=== PATIENT | female | born 1930 | race Caucasian/White ===

== ENCOUNTER 2017-10-11 18:32 | Inpatient (IN) | payer MEDICARE, MEDICAID ==
[~2017-10-11] VITALS: Ht 152.4 cm; Wt 40.6 kg
[2017-10-11] MEDS ORDERED: METOPROLOL SUCC25 MG ORAL (19:57)
[2017-10-11] MEDS ORDERED: DIGOXIN0.125 MG/2 ORAL (19:57)
[2017-10-11] MEDS ORDERED: BUPROPION XL150 MG ORAL (19:57)
[2017-10-11] MEDS ORDERED: SIMVASTATIN10 MG ORAL (19:57)
[2017-10-11] MEDS ORDERED: CENTRUM COMPLE1 EAC1 PO (19:57)
[2017-10-11] MEDS ORDERED: LORAZEPAM1 MG ORAL (19:57)
[2017-10-11] MEDS ORDERED: ZYPREXA5 MG ORAL (19:57)
[2017-10-11] MEDS ORDERED: ASPIRIN81 MG ORAL (19:57)
[2017-10-11] MEDS ORDERED: CRANBERRY250 MG PO (19:57)
[2017-10-11 19:59] LABS: ANION GAP 6 mmol/L (5-15); BLOOD UREA NITROGEN 38 mg/dL (7-18); CALCIUM 9.9 MG/DL (8.5-10.1); CARBON DIOXIDE 26 MMOL/L (21-32); CHLORIDE 102 MMOL/L (98-107); CREATININE 1.3 MG/DL (0.55-1.30); POTASSIUM 4.6 MMOL/L (3.5-5.1); SODIUM 134 MMOL/L (136-145)
[2017-10-11 20:00] VITALS: BP 142/75
[2017-10-11 20:09] LABS: HEMATOCRIT 36.7 % (37.0-47.0); HEMOGLOBIN 12.2 G/DL (12.0-16.0); MEAN CORPUSCULAR VOLUME 85 FL (80-99); PLATELET COUNT 280 K/UL (150-450); RED BLOOD COUNT 4.29 M/UL (4.20-5.40); RED CELL DISTRIBUTION WIDTH 11.6 % (11.6-14.8); WHITE BLOOD COUNT 10.6 K/UL (4.8-10.8)
[2017-10-11 20:12] LABS: ALANINE AMINOTRANSFERASE 23 U/L (12-78); ALBUMIN/GLOBULIN RATIO 1.3 (1.0-2.7); ALKALINE PHOSPHATASE 132 U/L (46-116); ASPARTATE AMINO TRANSFERASE 19 U/L (15-37); BILIRUBIN,TOTAL 0.4 MG/DL (0.2-1.0); CKMB 0.8 NG/ML (0.0-3.6); CREATINE KINASE 35 U/L (26-308); PHOSPHORUS 3.3 MG/DL (2.5-4.9)
[2017-10-11] MEDS: Sodium Chloride 500ML 500 ML IV ONE ×2 (20:18→20:19)
[2017-10-11 20:20] LABS: APPEARANCE,URINE CLEAR; BILIRUBIN, URINE NEGATIVE (NEGATIVE); GLUCOSE, URINE (UA) NEGATIVE (NEGATIVE); KETONES,URINE 1+ (NEGATIVE); LEUKOCYTE ESTERASE ,URINE NEGATIVE (NEGATIVE); NITRITE,URINE NEGATIVE (NEGATIVE); PH,URINE 6 (4.5-8.0); PROTEIN,URINE 2+ (NEGATIVE); UROBILINOGEN,URINE NORMAL (NORMAL)
[2017-10-11 20:21] LABS: COLOR,URINE YELLOW
[2017-10-11 21:34] VITALS: BP 142/77
[2017-10-11 22:30] VITALS: BP 150/89
[2017-10-11] MEDS ORDERED: ATIVAN0.5 MG ORAL (22:39)
[2017-10-11] MEDS ORDERED: traMADol 50mg tab ORAL PRN (22:45)
--- NOTE | 2017-10-11 23:00 | Emergency Room Report ---
History of Present Illness General Chief Complaint: Altered Level of Consciousness Source: Family Member Present Illness HPI The patient is a 87-year-old female brought in by family member after increased agitation and the confusion. Patient had prior history of dementia. Patient was noted to have increased generalized weakness she presented taking digoxin as well as multiple psychiatric medications. Patient was noted to have decreased oral intake. The patient not been febrile. Allergies: Coded Allergies: No Known Allergies (Unverified , 10/11/17) Patient History Past Medical History: see triage record Last Menstrual Period: NA Reviewed Nursing Documentation: PMH: Agreed; PSxH: Agreed Nursing Documentation-PMH Past Medical History: No History, Except For Hx Cardiac Problems: No Hx Hypertension: No - broken neck 6 months ago. Hx Pacemaker: No Hx Asthma: No Hx COPD: No Hx Diabetes: No Hx Cancer: No Hx Gastrointestinal Problems: No Hx Dialysis: No Hx Neurological Problems: No Hx Cerebrovascular Accident: No Hx Seizures: No Review of Systems All Other Systems: limited - by mental status Physical Exam Vital Signs Date Time Temp Pulse Resp B/P (MAP) Pulse Ox O2 Delivery O2 Flow Rate FiO2 10/11/17 18:52 97.6 86 20 151/90 95 Room Air 97.5 General Appearance: thin, Chronically Ill Head: normocephalic Neck: limited range of motion, other - neck in cervical collar Respiratory: lungs clear Cardiovascular #1: no edema Gastrointestinal: normal inspection, non tender, soft Musculoskeletal: decreased range of motion Neurologic: alert, responsive Skin: no rash Medical Decision Making Diagnostic Impression: Primary Impression: Generalized weakness Additional Impressions: Possible urinary tract infection Dehydration ER Course Patient presented for generalized weakness and confusion. Differential diagnosis included was not limited to anemia, urinary tract infection, electrolyte abnormality, hypothyroidism, myocardial infarction, myasthenia gravis, dehydration, among others. Because of complexity of patient's case laboratory testing and imaging studies were ordered. CT of head read by radiology showed no evidence of acute hemorrhage or CVA. The laboratory testing was notable for elevated BUN as well as B type nitrate peptide. I EKG interpreted by me showed normal sinus rhythm with nonspecific T wave changes R84. Patient was given IV fluids. Dr. Vee was contacted for inpatient management due to primary care physician Labs Test 10/11/17 19:30 10/11/17 19:45 White Blood Count 10.6 K/UL (4.8-10.8) Red Blood Count 4.29 M/UL (4.20-5.40) Hemoglobin 12.2 G/DL (12.0-16.0) Hematocrit 36.7 % (37.0-47.0) Mean Corpuscular Volume 85 FL (80-99) Mean Corpuscular Hemoglobin 28.5 PG (27.0-31.0) Mean Corpuscular Hemoglobin Concent 33.4 G/DL (32.0-36.0) Red Cell Distribution Width 11.6 % (11.6-14.8) Platelet Count 280 K/UL (150-450) Mean Platelet Volume 6.8 FL (6.5-10.1) Neutrophils (%) (Auto) % (45.0-75.0) Lymphocytes (%) (Auto) % (20.0-45.0) Monocytes (%) (Auto) % (1.0-10.0) Eosinophils (%) (Auto) % (0.0-3.0) Basophils (%) (Auto) % (0.0-2.0) Differential Total Cells Counted 100 Neutrophils % (Manual) 85 % (45-75) Lymphocytes % (Manual) 11 % (20-45) Monocytes % (Manual) 4 % (1-10) Eosinophils % (Manual) 0 % (0-3) Basophils % (Manual) 0 % (0-2) Band Neutrophils 0 % (0-8) Platelet Estimate Adequate Platelet Morphology Normal Red Blood Cell Morphology Normal Sodium Level 134 MMOL/L (136-145) Potassium Level 4.6 MMOL/L (3.5-5.1) Chloride Level 102 MMOL/L (98-107) Carbon Dioxide Level 26 MMOL/L (21-32) Anion Gap 6 mmol/L (5-15) Blood Urea Nitrogen 38 mg/dL (7-18) Creatinine 1.3 MG/DL (0.55-1.30) Estimat Glomerular Filtration Rate mL/min (>60) Glucose Level 138 MG/DL (74-106) Lactic Acid Level 1.40 mmol/L (0.4-2.0) Calcium Level 9.9 MG/DL (8.5-10.1) Phosphorus Level 3.3 MG/DL (2.5-4.9) Magnesium Level 2.3 MG/DL (1.8-2.4) Total Bilirubin 0.4 MG/DL (0.2-1.0) Aspartate Amino Transf (AST/SGOT) 19 U/L (15-37) Alanine Aminotransferase (ALT/SGPT) 23 U/L (12-78) Alkaline Phosphatase 132 U/L (46-116) Total Creatine Kinase 35 U/L (26-308) Creatine Kinase MB 0.8 NG/ML (0.0-3.6) Creatine Kinase MB Relative Index 2.2 Troponin I 0.000 ng/mL (0.000-0.056) Pro-B-Type Natriuretic Peptide 513 pg/mL (0-125) Total Protein 7.1 G/DL (6.4-8.2) Albumin 4.0 G/DL (3.4-5.0) Globulin 3.1 g/dL Albumin/Globulin Ratio 1.3 (1.0-2.7) Lipase 88 U/L (73-393) Urine Color Yellow Urine Appearance Clear Urine pH 6 (4.5-8.0) Urine Specific [place] 1.020 (1.005-1.035) Urine Protein 2+ (NEGATIVE) Urine Glucose (UA) Negative (NEGATIVE) Urine Ketones 1+ (NEGATIVE) Urine Occult Blood 1+ (NEGATIVE) Urine Nitrite Negative (NEGATIVE) Urine Bilirubin Negative (NEGATIVE) Urine Urobilinogen Normal MG/DL (NORMAL) Urine Leukocyte Esterase Negative (NEGATIVE) Urine RBC 0-2 /HPF (0 - 2) Urine WBC 0-2 /HPF (0 - 2) Urine Squamous Epithelial Cells Few /LPF (NONE/OCC) Urine Bacteria Few /HPF (NONE) Last Vital Signs Date Time Temp Pulse Resp B/P (MAP) Pulse Ox O2 Delivery O2 Flow Rate FiO2 10/11/17 22:15 98.3 85 15 142/77 98 Room Air 98.3 Status: improved Disposition: HOME, SELF-CARE Condition: Stable Referrals: Juan Luis Mckee MD (PCP) Hugo Pemberton MD Oct 11, 2017 23:00
[2017-10-11] MEDS: BuPROPion XL 150mg tab ORAL SCH (23:28)
[2017-10-12 04:00] VITALS: BP 157/90
[2017-10-12] MEDS: LORazepam 0.5mg tab ORAL PRN ×2 (04:25→23:15)
[2017-10-12 06:24] LABS: BASOPHILS % (AUTO) 0.4 % (0.0-2.0); EOSINOPHILS % (AUTO) 0.3 % (0.0-3.0); HEMATOCRIT 34.2 % (37.0-47.0); HEMOGLOBIN 11.8 G/DL (12.0-16.0); MEAN CORPUSCULAR VOLUME 86 FL (80-99); MONOCYTES % (AUTO) 5.2 % (1.0-10.0); NEUTROPHILS % (AUTO) 82.2 % (45.0-75.0); PLATELET COUNT 249 K/UL (150-450); RED BLOOD COUNT 3.97 M/UL (4.20-5.40); RED CELL DISTRIBUTION WIDTH 11.6 % (11.6-14.8); WHITE BLOOD COUNT 8.5 K/UL (4.8-10.8)
[2017-10-12 07:04] LABS: ANION GAP 11 mmol/L (5-15); BLOOD UREA NITROGEN 29 mg/dL (7-18); CALCIUM 9.3 MG/DL (8.5-10.1); CARBON DIOXIDE 24 MMOL/L (21-32); CHLORIDE 102 MMOL/L (98-107); CREATININE 1.1 MG/DL (0.55-1.30); POTASSIUM 4.1 MMOL/L (3.5-5.1); SODIUM 137 MMOL/L (136-145)
[2017-10-12 08:00] VITALS: BP 143/69
--- NOTE | 2017-10-12 08:44 | General Progress Note ---
Assessment/Plan Status: stable Assessment/Plan 1. Generalized weakness - PT and OT eval and txt. 2. Dehydration - improved with NS. 3. H/O C1 and C2 fx - 4. H/O multiple falls - PT and OT eval and txt. 5. Dementia - cont zyprexa. 6. Depression - on wellbutrin and zyprexa. 7. Hyperlipidemia - cont Atorvastatin 10 mg one po qh 8. HTN - cont toprol XL 50 mg daily. Subjective Date patient seen: Oct 12, 2017 Time patient seen: 08:30 Constitutional: Reports: weakness HEENT: Reports: no symptoms Cardiovascular: Reports: no symptoms Respiratory: Reports: no symptoms Gastrointestinal/Abdominal: Reports: no symptoms Genitourinary: Reports: no symptoms Neurologic/Psychiatric: Reports: no symptoms Endocrine: Reports: no symptoms Hematologic/Lymphatic: Reports: no symptoms Allergies: Coded Allergies: No Known Allergies (Unverified , 10/11/17) Subjective This morning she is lying in bed. she is slightly confused. no sob or chest pain. no fever or chills. Objective Last 24 Hour Vital Signs Date Time Temp Pulse Resp B/P (MAP) Pulse Ox O2 Delivery O2 Flow Rate FiO2 10/12/17 04:00 98.2 91 20 157/90 (112) 97 98.2 10/12/17 04:00 80 10/12/17 00:00 Room Air 10/12/17 00:00 87 10/11/17 22:36 84 10/11/17 22:30 97.5 87 18 150/89 (109) 97 97.5 10/11/17 22:15 98.3 85 15 142/77 98 Room Air 98.3 10/11/17 21:34 98.3 85 15 142/77 98 Room Air 98.3 10/11/17 20:00 98.2 85 14 142/75 95 Room Air 98.2 10/11/17 18:52 97.6 86 20 151/90 95 Room Air 97.5 Intake and Output 10/11/17 10/12/17 19:00 07:00 Intake Total 950 ml Balance 950 ml Intake Oral 50 ml IV Total 900 ml # Voids 3 Laboratory Tests 10/11/17 19:30: White Blood Count 10.6, Red Blood Count 4.29, Hemoglobin 12.2, Hematocrit 36.7L , Mean Corpuscular Volume 85, Mean Corpuscular Hemoglobin 28.5, Mean Corpuscular Hemoglobin Concent 33.4, Red Cell Distribution Width 11.6, Platelet Count 280, Mean Platelet Volume 6.8, Neutrophils (%) (Auto) , Lymphocytes (%) ( Auto) , Monocytes (%) (Auto) , Eosinophils (%) (Auto) , Basophils (%) (Auto) , Differential Total Cells Counted 100, Neutrophils % (Manual) 85H, Lymphocytes % (Manual) 11L, Monocytes % (Manual) 4, Eosinophils % (Manual) 0, Basophils % ( Manual) 0, Band Neutrophils 0, Platelet Estimate Adequate, Platelet Morphology Normal, Red Blood Cell Morphology Normal, Sodium Level 134L, Potassium Level 4.6 , Chloride Level 102, Carbon Dioxide Level 26, Anion Gap 6, Blood Urea Nitrogen 38H, Creatinine 1.3, Estimat Glomerular Filtration Rate , Glucose Level 138H, Lactic Acid Level 1.40, Calcium Level 9.9, Phosphorus Level 3.3, Magnesium Level 2.3, Total Bilirubin 0.4, Aspartate Amino Transf (AST/SGOT) 19, Alanine Aminotransferase (ALT/SGPT) 23, Alkaline Phosphatase 132H, Total Creatine Kinase 35, Creatine Kinase MB 0.8, Creatine Kinase MB Relative Index 2.2, Troponin I 0.000, Pro-B-Type Natriuretic Peptide 513H, Total Protein 7.1, Albumin 4.0, Globulin 3.1, Albumin/Globulin Ratio 1.3, Lipase 88 10/11/17 19:45: Urine Color Yellow, Urine Appearance Clear, Urine pH 6, Urine Specific [place] 1.020, Urine Protein 2+H, Urine Glucose (UA) Negative, Urine Ketones 1+H, Urine Occult Blood 1+H, Urine Nitrite Negative, Urine Bilirubin Negative, Urine Urobilinogen Normal, Urine Leukocyte Esterase Negative, Urine RBC 0-2, Urine WBC 0-2, Urine Squamous Epithelial Cells Few, Urine Bacteria Few 10/12/17 05:10: White Blood Count 8.5, Red Blood Count 3.97L, Hemoglobin 11.8L, Hematocrit 34.2L , Mean Corpuscular Volume 86, Mean Corpuscular Hemoglobin 29.7, Mean Corpuscular Hemoglobin Concent 34.4, Red Cell Distribution Width 11.6, Platelet Count 249, Mean Platelet Volume 7.0, Neutrophils (%) (Auto) 82.2H, Lymphocytes ( %) (Auto) 12.0L, Monocytes (%) (Auto) 5.2, Eosinophils (%) (Auto) 0.3, Basophils (%) (Auto) 0.4, Sodium Level 137, Potassium Level 4.1, Chloride Level 102, Carbon Dioxide Level 24, Anion Gap 11, Blood Urea Nitrogen 29H, Creatinine 1.1, Estimat Glomerular Filtration Rate , Glucose Level 118H, Calcium Level 9.3 Height (Feet): 5 Height (Inches): 0.00 Weight (Pounds): 100 General Appearance: no apparent distress, alert EENT: normal ENT inspection Neck: non-tender, normal alignment, supple Cardiovascular: normal rate, regular rhythm Respiratory/Chest: chest wall non-tender, lungs clear, normal breath sounds Abdomen: normal bowel sounds, non tender, soft Extremities: normal range of motion, non-tender Edema: no edema noted Arm (L), no edema noted Arm (R), no edema noted Leg (L), no edema noted Leg (R), no edema noted Pedal (L), no edema noted Pedal (R), no edema noted Generalized Neurologic: alert, responsive, motor weakness Skin: warm/dry Lymphatic: normal anterior cervical (L), normal anterior cervical (R), normal posterior cervical (L), normal posterior cervical (R), normal submandibular (L) , normal submandibular (R), normal supraclavicular (L), normal supraclavicular ( R), normal axillary (L), normal axillary (R), normal inguinal (L), normal inguinal (R), normal other Juan Luis Mckee MD Oct 12, 2017 08:44
[2017-10-12] MEDS: Multivitamin w/Minerals tab ORAL SCH (08:56)
[2017-10-12] MEDS: OLANZapine 2.5mg tab ORAL SCH (08:56)
[2017-10-12] MEDS: Metoprolol Succinate XL 25mg tab ORAL SCH (08:56)
[2017-10-12] MEDS: Digoxin Elixir 0.125mg ORAL SCH (08:56)
[2017-10-12] MEDS: Aspirin Baby 81mg ORAL SCH (08:56)
--- NOTE | 2017-10-12 09:29 | Diagnostic Imaging Report ---
Indication: Altered mental status Technique: Continuous helical CT scanning of the head was performed utilizing automated exposure control without intravenous contrast material. Axial and coronal reconstructions were obtained. Comparison: None CT dose: Total DLP 1358.49 mGycm; CTDI vol 70.38 mGy Findings: There is no acute intracranial hemorrhage, mass effect or cortical edema. The ventricles, cisterns and sulci are mildly prominent consistent with atrophy. Periventricular hypoattenuation is seen, a nonspecific finding. There are intracranial atherosclerotic calcifications. Visualized mastoid air cells and paranasal sinuses are unremarkable. No focal lesions of the bony calvarium or soft tissues of the scalp are seen. Age-indeterminate fracture deformity of the anterior aspect of the C1 vertebral body partially visualized. 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 IMPRESSION: No evidence of acute intracranial hemorrhage, mass effect or cortical edema. MRI may be obtained for more sensitive evaluation as clinically indicated. Mild atrophy and nonspecific periventricular hypoattenuation suggestive of chronic ischemic microvascular changes. Fracture of the anterior aspect of the C1 vertebral body partially visualized. Cervical collar in place. Patient with history of C1 and C2 fractures documented in the electronic medical record. No prior imaging of these fractures here at [facility] to allow for comparison. Study obtained via the emergency department however patient admitted to the hospital at time of dictation of the final report. Findings discussed with the patient's treating nurse on 2 E. via telephone conversation. The CT scanner at [facility] is accredited by the [employer] and the scans are performed using protocols designed to limit radiation exposure to as low as reasonably achievable to attain images of sufficient resolution adequate for diagnostic evaluation.
--- NOTE | 2017-10-12 09:30 | Diagnostic Imaging Report ---
Indication: Shortness of breath Technique: XRAY Chest 1v Comparison: None Findings: Heart size within normal limits for AP technique. There are atherosclerotic calcifications in the aorta. There is no focal airspace consolidation, pleural effusion or pneumothorax. There is osteopenia and degenerative change of the spine. No acute osseous abnormality seen. A cervical collar is in place. Impression: No focal consolidation, pleural effusion or pneumothorax. Cervical collar in place.
[2017-10-12 12:00] VITALS: BP 119/76
[2017-10-12 16:00] VITALS: BP 113/73
[2017-10-12 20:00] VITALS: BP 136/73
[2017-10-12] MEDS: BuPROPion XL 150mg tab ORAL SCH (20:00)
[2017-10-13] VITALS: BP 146/92
[2017-10-13 04:00] VITALS: BP 123/72
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
[2017-10-13 07:35] LABS: BASOPHILS % (AUTO) 0.9 % (0.0-2.0); HEMATOCRIT 36.3 % (37.0-47.0); HEMOGLOBIN 12.3 G/DL (12.0-16.0); LYMPHOCYTES % (AUTO) 25.4 % (20.0-45.0); MEAN CORPUSCULAR VOLUME 86 FL (80-99); MONOCYTES % (AUTO) 7.3 % (1.0-10.0); NEUTROPHILS % (AUTO) 65.5 % (45.0-75.0); PLATELET COUNT 248 K/UL (150-450); RED BLOOD COUNT 4.24 M/UL (4.20-5.40); RED CELL DISTRIBUTION WIDTH 11.5 % (11.6-14.8); WHITE BLOOD COUNT 7.1 K/UL (4.8-10.8)
[2017-10-13 08:00] VITALS: BP 136/83
[2017-10-13 08:02] LABS: ANION GAP 9 mmol/L (5-15); BLOOD UREA NITROGEN 24 mg/dL (7-18); CALCIUM 9.4 MG/DL (8.5-10.1); CARBON DIOXIDE 25 MMOL/L (21-32); CHLORIDE 105 MMOL/L (98-107); CREATININE 1.1 MG/DL (0.55-1.30); SODIUM 139 MMOL/L (136-145)
[2017-10-13] MEDS: Digoxin Elixir 0.125mg ORAL SCH (08:34)
[2017-10-13] MEDS: OLANZapine 2.5mg tab ORAL SCH (08:34)
[2017-10-13] MEDS: Multivitamin w/Minerals tab ORAL SCH (08:34)
[2017-10-13] MEDS: Aspirin Baby 81mg ORAL SCH (08:34)
[2017-10-13] MEDS: Metoprolol Succinate XL 25mg tab ORAL SCH (08:38)
--- NOTE | 2017-10-13 08:53 | General Progress Note ---
Assessment/Plan Status: stable Assessment/Plan 1. Generalized weakness - PT and OT eval and txt. will D/C to [facility] tomorrow. 2. Dehydration - improved. 3. H/O C1 and C2 fx 4. H/O multiple falls - PT and OT eval and txt. will plan to D/C to rehab for further Physical therapy. 5. Dementia - cont zyprexa. 6. Depression - on wellbutrin and zyprexa. 7. Hyperlipidemia - cont Atorvastatin 10 mg one po qhs. 8. HTN - cont toprol XL 50 mg daily. Subjective Date patient seen: Oct 13, 2017 Time patient seen: 08:40 Constitutional: Reports: weakness HEENT: Reports: no symptoms Cardiovascular: Reports: no symptoms Respiratory: Reports: no symptoms Gastrointestinal/Abdominal: Reports: no symptoms Genitourinary: Reports: no symptoms Neurologic/Psychiatric: Reports: no symptoms Endocrine: Reports: no symptoms Hematologic/Lymphatic: Reports: no symptoms Allergies: Coded Allergies: No Known Allergies (Unverified , 10/11/17) Subjective This morning she is lying in bed. She is doing better today. no sob or chest pain. no fever or chills. Physical therapy saw the patient. Objective Last 24 Hour Vital Signs Date Time Temp Pulse Resp B/P (MAP) Pulse Ox O2 Delivery O2 Flow Rate FiO2 10/13/17 08:38 86 136/83 10/13/17 08:34 86 10/13/17 08:00 98.0 86 18 136/83 (100) 95 98.0 10/13/17 04:00 74 10/13/17 04:00 97.0 80 20 123/72 (89) 97 97.0 10/13/17 00:00 97.3 90 23 146/92 (110) 94 97.3 10/13/17 00:00 81 10/12/17 21:00 Room Air 10/12/17 20:00 75 10/12/17 20:00 97.5 78 19 136/73 (94) 94 97.5 10/12/17 16:00 75 10/12/17 16:00 97.7 75 20 113/73 (86) 97 97.7 10/12/17 12:00 97.7 74 20 119/76 (90) 97 97.7 10/12/17 12:00 67 10/12/17 09:00 Room Air 10/12/17 08:56 80 143/69 10/12/17 08:56 80 Intake and Output 10/12/17 10/13/17 19:00 07:00 Output Total 0 ml Balance 0 ml Output Urine Total 0 ml # Voids 2 Laboratory Tests 10/13/17 06:35: White Blood Count 7.1, Red Blood Count 4.24, Hemoglobin 12.3, Hematocrit 36.3L, Mean Corpuscular Volume 86, Mean Corpuscular Hemoglobin 28.9, Mean Corpuscular Hemoglobin Concent 33.7, Red Cell Distribution Width 11.5L, Platelet Count 248, Mean Platelet Volume 7.1, Neutrophils (%) (Auto) 65.5, Lymphocytes (%) (Auto) 25.4, Monocytes (%) (Auto) 7.3, Eosinophils (%) (Auto) 1.0, Basophils (%) (Auto ) 0.9, Sodium Level 139, Potassium Level 4.0, Chloride Level 105, Carbon Dioxide Level 25, Anion Gap 9, Blood Urea Nitrogen 24H, Creatinine 1.1, Estimat Glomerular Filtration Rate , Glucose Level 90, Calcium Level 9.4, Digoxin Level 1.0 Height (Feet): 5 Height (Inches): 0.00 Weight (Pounds): 89 General Appearance: no apparent distress, alert Neck: non-tender, supple Cardiovascular: normal peripheral pulses, normal rate, regular rhythm Respiratory/Chest: chest wall non-tender, lungs clear, normal breath sounds Abdomen: normal bowel sounds, non tender, soft Extremities: normal range of motion, non-tender Edema: no edema noted Arm (L), no edema noted Arm (R), no edema noted Leg (L), no edema noted Leg (R), no edema noted Pedal (L), no edema noted Pedal (R), no edema noted Generalized Neurologic: alert, responsive, motor weakness Skin: warm/dry Lymphatic: normal anterior cervical (L), normal anterior cervical (R), normal posterior cervical (L), normal posterior cervical (R), normal submandibular (L) , normal submandibular (R), normal supraclavicular (L), normal supraclavicular ( R), normal axillary (L), normal axillary (R), normal inguinal (L), normal inguinal (R), normal other Juan Luis Mckee MD Oct 13, 2017 08:53
--- NOTE | 2017-10-13 11:23 | Physician Query ---
-------- THIS DOCUMENT IS A PERMANENT PART OF THE MEDICAL RECORD --------- PLEASE COMPLETE DOCUMENT BEFORE SIGNING Dear Dr. Mckee Date: 10/2017 Chief Projectionist/CDS Name:Jax Gutiérrez Chief Projectionist / CDS Phone # [phone] Exercise your independent professional judgment when responding to query. Question asked do not imply a particular answer is desired/expected. Clinical Documentation States: Patient came to ER with Altered level consciousness. H&P notes state Patient has increased agitation and confusion. Patient admitted with dehydration. Clinical Findings Show: Na: 134, Glucose: 138. Please indicate the nature and chronicity of the condition below: [] Metabolic Encephalopathy [] Toxic Encephalopathy [] Toxic - Metabolic Encephalopathy [] Progressive Encephalopathy [] Encephalopathy, Other [] Other: [] Not Applicable Severity [] Acute [] Chronic [] Acute on Chronic [] Unable to determine Condition Present on Admission: [] Yes [] No []Clinically Undeterminable Please also document in your Progress Notes and/or Discharge Summary and indicate if the condition was present on admission. MTDD
[2017-10-13 12:00] VITALS: BP 149/90
--- NOTE | 2017-10-13 13:25 | Consultation ---
History of Present Illness General Date patient seen: Oct 13, 2017 Chief Complaint: Altered Level of Consciousness Present Illness HPI 87-year-old female, who was brought in by her daughter, for complaint of increased agitation and confusion. The pt daughter stated that the pt should not receive Ativan and they requested Zyprexa during the day. the pt was awake and agitated last night. the pt is tearful, agitated and disrobing. the pt was confused and was unable to provide hx. Allergies: Coded Allergies: No Known Allergies (Unverified , 10/11/17) Medication History Scheduled Aspirin* (Aspirin*), 81 MG ORAL DAILY, (Reported) Bupropion Xl* (Bupropion Xl*), 300 MG ORAL BEDTIME, (Reported) Cranberry Extract (Cranberry), 250 MG PO DAILY, (Reported) Digoxin* (Digoxin*), 0.125 MG ORAL DAILY, (Reported) Metoprolol Succinate* (Metoprolol Succinate*), 25 MG ORAL DAILY, (Reported) Multivitamin/Iron/Folic Acid (Centrum Complete Multivit Tab), 1 EACH PO DAILY, ( Reported) Olanzapine* (Zyprexa*), 5 MG ORAL DAILY, (Reported) Simvastatin (Zocor), 10 MG ORAL BEDTIME, (Reported) Scheduled PRN Lorazepam* (Ativan*), 0.5 MG ORAL PRN PRN for Agitation, (Reported) Discontinued Medications Lorazepam* (Lorazepam*), 1 MG ORAL BEDTIME, (Reported) Discontinued Reason: Medication dose changed Patient History Limited by: age, medical condition History Provided By: Family Member, Medical Record, PMD Healthcare decision maker Resuscitation status Full Code Advanced Directive on File Past Medical/Surgical History Past Medical/Surgical History: (1) Dehydration (2) Generalized weakness (3) Possible urinary tract infection Review of Systems Psychiatric: Reports: prior hx, anxiety, depressed feelings, emotional problems Physical Exam General Appearance: WD/WN, no apparent distress, alert, confused, agitated Last 24 Hour Vital Signs Date Time Temp Pulse Resp B/P (MAP) Pulse Ox O2 Delivery O2 Flow Rate FiO2 10/13/17 12:00 93 10/13/17 12:00 99.2 87 20 149/90 (109) 96 99.2 10/13/17 09:00 Room Air 10/13/17 08:38 86 136/83 10/13/17 08:34 86 10/13/17 08:00 98.0 86 18 136/83 (100) 95 98.0 10/13/17 08:00 85 10/13/17 04:00 74 10/13/17 04:00 97.0 80 20 123/72 (89) 97 97.0 10/13/17 00:00 97.3 90 23 146/92 (110) 94 97.3 10/13/17 00:00 81 10/12/17 21:00 Room Air 10/12/17 20:00 75 10/12/17 20:00 97.5 78 19 136/73 (94) 94 97.5 10/12/17 16:00 75 10/12/17 16:00 97.7 75 20 113/73 (86) 97 97.7 Intake and Output 10/12/17 10/13/17 19:00 07:00 Output Total 0 ml Balance 0 ml Output Urine Total 0 ml # Voids 2 Laboratory Tests Test 10/13/17 06:35 White Blood Count 7.1 K/UL (4.8-10.8) Red Blood Count 4.24 M/UL (4.20-5.40) Hemoglobin 12.3 G/DL (12.0-16.0) Hematocrit 36.3 % (37.0-47.0) L Mean Corpuscular Volume 86 FL (80-99) Mean Corpuscular Hemoglobin 28.9 PG (27.0-31.0) Mean Corpuscular Hemoglobin Concent 33.7 G/DL (32.0-36.0) Red Cell Distribution Width 11.5 % (11.6-14.8) L Platelet Count 248 K/UL (150-450) Mean Platelet Volume 7.1 FL (6.5-10.1) Neutrophils (%) (Auto) 65.5 % (45.0-75.0) Lymphocytes (%) (Auto) 25.4 % (20.0-45.0) Monocytes (%) (Auto) 7.3 % (1.0-10.0) Eosinophils (%) (Auto) 1.0 % (0.0-3.0) Basophils (%) (Auto) 0.9 % (0.0-2.0) Sodium Level 139 MMOL/L (136-145) Potassium Level 4.0 MMOL/L (3.5-5.1) Chloride Level 105 MMOL/L (98-107) Carbon Dioxide Level 25 MMOL/L (21-32) Anion Gap 9 mmol/L (5-15) Blood Urea Nitrogen 24 mg/dL (7-18) H Creatinine 1.1 MG/DL (0.55-1.30) Estimat Glomerular Filtration Rate mL/min (>60) Glucose Level 90 MG/DL (74-106) Calcium Level 9.4 MG/DL (8.5-10.1) Digoxin Level 1.0 NG/ML (0.9-2.0) Height (Feet): 5 Height (Inches): 0.00 Weight (Pounds): 89 Medications Current Medications Medications (Trade) Dose Ordered Sig/Nia Route PRN Reason Start Time Stop Time Status Last Admin Dose Admin Acetaminophen (Tylenol) 650 mg Q6H PRN ORAL Mild Pain/Temp > 100.5 10/11/17 22:45 11/10/17 22:44 Aspirin (ASA) 81 mg DAILY ORAL 10/12/17 09:00 11/11/17 08:59 10/13/17 08:34 Atorvastatin Calcium (Lipitor) 10 mg BEDTIME ORAL 10/11/17 23:15 11/10/17 23:14 10/12/17 20:00 Digoxin (Lanoxin) 0.125 mg DAILY ORAL 10/12/17 09:00 11/11/17 08:59 10/13/17 08:34 Metoprolol Succinate (Toprol XL) 25 mg DAILY ORAL 10/12/17 09:00 11/11/17 08:59 10/13/17 08:38 Multivitamins Therapeutic (Therapeutic Multivitamin) 1 ea DAILY ORAL 10/12/17 09:00 11/11/17 08:59 10/13/17 08:34 Tramadol HCl (Ultram) 50 mg EVERY 8 HOURS PRN ORAL MODERATE TO SEVERE PAIN 10/11/17 22:45 10/18/17 22:44 Assessment/Plan Status: deteriorating Assessment/Plan Encephalopathy Dementia with behavioral disturbance MDD -dc welbutrin qhs, which makes the pt more agitated -start lexapro -dc ativan -change zyprexa to night time -start zyprexa prn for agitation -d/w daughter Eliseo Vasquez MD Oct 13, 2017 13:25
[2017-10-13 16:00] VITALS: BP 155/90
[2017-10-13] MEDS ORDERED: traMADol 50mg tab ORAL PRN (16:00)
--- NOTE | 2017-10-13 16:13 | Cardiology Report ---
APPROVED REPORT EKG Measurement Heart [id number] Normal sinus rhythm Low voltage QRS Cannot rule out Anterior infarct, age undetermined Abnormal ECG
[2017-10-13] MEDS ORDERED: Haloperidol 5mg/ml Inj IM SCH (17:30)
[2017-10-13 20:00] VITALS: BP 145/90
[2017-10-14] VITALS: BP 136/79
[2017-10-14] MEDS: LORazepam 0.5mg tab ORAL PRN ×2 (01:36→08:13)
[2017-10-14 04:56] VITALS: BP 123/75
[2017-10-14 08:00] VITALS: BP 140/89
[2017-10-14] MEDS ORDERED: Digoxin Elixir 0.125mg ORAL SCH (09:00)
[2017-10-14] MEDS ORDERED: Metoprolol Succinate XL 25mg tab ORAL SCH (09:00)
[2017-10-14] MEDS ORDERED: Multivitamin w/Minerals tab ORAL SCH (09:00)
[2017-10-14] MEDS ORDERED: Aspirin Baby 81mg ORAL SCH (09:00)
--- NOTE | 2017-10-14 09:09 | General Progress Note ---
Assessment/Plan Status: stable Assessment/Plan 1. Generalized weakness - PT and OT eval and txt done. will D/C to rehab today. 2. Dehydration - improved. 3. H/O C1 and C2 fx 4. H/O multiple falls - PT and OT eval and txt done. will plan to D/C to rehab for further Physical therapy. 5. Dementia - cont zyprexa 5mg. 6. Depression - off wellbutrin and on lexapro 10 mg per psych. and cont zyprexa 5 mg. 7. Hyperlipidemia - cont Atorvastatin 10 mg one po qhs. 8. HTN - cont toprol XL 50 mg daily. Subjective Date patient seen: Oct 14, 2017 Time patient seen: 09:00 Constitutional: Reports: weakness HEENT: Reports: no symptoms Cardiovascular: Reports: no symptoms Respiratory: Reports: no symptoms Gastrointestinal/Abdominal: Reports: no symptoms Genitourinary: Reports: no symptoms Neurologic/Psychiatric: Reports: weakness Endocrine: Reports: no symptoms Hematologic/Lymphatic: Reports: no symptoms Allergies: Coded Allergies: No Known Allergies (Unverified , 10/11/17) Subjective This morning she is lying in bed. no sob or chest pain. no fever or chills. Objective Last 24 Hour Vital Signs Date Time Temp Pulse Resp B/P (MAP) Pulse Ox O2 Delivery O2 Flow Rate FiO2 10/14/17 08:13 108 140/75 10/14/17 08:12 108 10/14/17 08:00 98.4 110 20 140/89 (106) 95 98.4 10/14/17 04:56 98.6 86 20 123/75 (91) 95 98.6 10/14/17 00:00 98.5 65 20 136/79 (98) 97 98.5 10/13/17 21:03 Room Air 10/13/17 20:00 98.3 109 19 145/90 (108) 96 98.3 10/13/17 16:00 96.6 100 20 155/90 (111) 96 96.6 10/13/17 12:00 93 10/13/17 12:00 99.2 87 20 149/90 (109) 96 99.2 Intake and Output 10/13/17 10/14/17 19:00 07:00 Intake Total 180 ml 60 ml Balance 180 ml 60 ml Intake Oral 180 ml 60 ml # Voids 1 1 Height (Feet): 5 Height (Inches): 0.00 Weight (Pounds): 89 General Appearance: no apparent distress, alert Neck: non-tender, supple Cardiovascular: normal peripheral pulses, normal rate, regular rhythm Respiratory/Chest: chest wall non-tender, lungs clear, normal breath sounds Abdomen: non tender, soft, no organomegaly Extremities: normal range of motion, non-tender Edema: no edema noted Arm (L), no edema noted Arm (R), no edema noted Leg (L), no edema noted Leg (R), no edema noted Pedal (L), no edema noted Pedal (R), no edema noted Generalized Neurologic: alert, responsive Skin: warm/dry Lymphatic: normal anterior cervical (L), normal anterior cervical (R), normal posterior cervical (L), normal posterior cervical (R), normal submandibular (L) , normal submandibular (R), normal supraclavicular (L), normal supraclavicular ( R), normal axillary (L), normal axillary (R), normal inguinal (L), normal inguinal (R), normal other Juan Luis Mckee MD Oct 14, 2017 09:08
[2017-10-14 12:00] VITALS: BP 102/71
--- NOTE | 2017-10-14 12:38 | General Progress Note ---
Assessment/Plan Assessment/Plan Encephalopathy Dementia with behavioral disturbance MDD -start lexapro -dc ativan -change zyprexa to night time -start zyprexa prn for agitation -d/w daughter Subjective Neurologic/Psychiatric: Reports: anxiety, depressed Allergies: Coded Allergies: No Known Allergies (Unverified , 10/11/17) Objective Last 24 Hour Vital Signs Date Time Temp Pulse Resp B/P (MAP) Pulse Ox O2 Delivery O2 Flow Rate FiO2 10/14/17 09:00 Room Air 10/14/17 08:13 108 140/75 10/14/17 08:12 108 10/14/17 08:00 98.4 110 20 140/89 (106) 95 98.4 10/14/17 04:56 98.6 86 20 123/75 (91) 95 98.6 10/14/17 00:00 98.5 65 20 136/79 (98) 97 98.5 10/13/17 21:03 Room Air 10/13/17 20:00 98.3 109 19 145/90 (108) 96 98.3 10/13/17 16:00 96.6 100 20 155/90 (111) 96 96.6 Intake and Output 10/13/17 10/14/17 19:00 07:00 Intake Total 180 ml 60 ml Balance 180 ml 60 ml Intake Oral 180 ml 60 ml # Voids 1 1 Height (Feet): 5 Height (Inches): 0.00 Weight (Pounds): 89 General Appearance: no apparent distress, alert, confused, agitated Eliseo Vasquez MD Oct 14, 2017 12:38
[2017-10-14 15:39] VITALS: BP 123/79
[2017-10-14] MEDS ORDERED: LIPITOR10 MG ORAL (15:54)
[2017-10-14] MEDS ORDERED: TRAMADOL HCL50 MG ORAL (15:54)
[2017-10-14] MEDS ORDERED: ACETAMINOPHEN325 M1 ORAL (15:54)
[2017-10-14] MEDS ORDERED: DIGOXIN0.125 MG/2 ORAL (15:54)
[2017-10-14] MEDS ORDERED: ASPIRIN81 MG ORAL (15:54)
[2017-10-14] MEDS ORDERED: METOPROLOL SUCC25 MG ORAL (15:54)
[2017-10-14] MEDS ORDERED: MULTIVITAMINS1 EAC8 ORAL (15:54)
[2017-10-14] MEDS ORDERED: ATIVAN0.5 MG ORAL (15:54)
[2017-10-14] MEDS ORDERED: LEXAPRO10 MG ORAL (15:54)
[2017-10-14] MEDS ORDERED: OLANZAPINE5 MG ORAL ×2 (15:54)
--- NOTE | 2017-10-15 05:00 | Discharge Summary ---
DATE OF ADMISSION: 10/11/2017 DATE OF DISCHARGE: 10/14/2017 HOSPITAL COURSE: This is an 87-year-old [place] female who was brought in for complaint of being altered for the past 2 days prior to admission. The patient was brought in by her daughter for evaluation. Her workup in the emergency room showed she was dehydrated and IV fluids were started and the patient responded to the fluid. She also had UA and urine culture done. Culture did not grow anything. The patient had some agitation due to her dementia and psychiatrist was consulted and the patient's medication was changed and the Wellbutrin was discontinued and the patient was started on Lexapro 10 mg daily plus continuation of Zyprexa 5 mg nightly and Zyprexa 5 mg q.6 h. p.r.n. for agitation. The patient also had history of fall previously with C1-C2 fracture and wearing a C-collar. Her fracture has slowly improved and the patient was following with neurosurgeon as an outpatient. PAST MEDICAL HISTORY: Includes history of multiple falls, history of recurrent UTI, dementia, hypertension, depression, hyperlipidemia, and C1-C2 fracture. PAST SURGICAL HISTORY: None. ALLERGIES: No known drug allergies. DISCHARGE DIAGNOSES: 1. Generalized weakness. 2. Dehydration. 3. Hypertension. 4. Hyperlipidemia. 5. Depression. 6. Dementia. 7. History of multiple falls. 8. History of C1 and C2 fracture. DISCHARGE MEDICATIONS: 1. Acetaminophen 325 mg 2 tablets p.o. q.6 h. p.r.n. for fever and pain. 2. Aspirin 81 mg daily. 3. Atorvastatin 10 mg nightly. 4. Digoxin 0.125 mg daily. 5. Lexapro 10 mg daily. 6. Ativan 0.5 mg q.6 h. p.r.n. 7. Metoprolol succinate 25 mg daily. 8. Multivitamin 1 daily. 9. Olanzapine 5 mg q.6 h. p.r.n. 10. Olanzapine 5 mg nightly. 11. Tramadol 50 mg q.8 h. p.r.n. for pain 12. Cranberry extract 250 mg capsule daily. DISPOSITION: The patient will be discharged to rehab, most likely [facility] and I will follow the patient in a couple of days at the rehab. Juan Luis Mckee M.D. DR: HEATHER JOB#: [id number] CC:
== END 2017-10-14 18:20 | DRG 640 ==
LOC: EMR 19:23 → 2E 19:25 → EDBEDREQ 21:08 → 4E 10-13 15:20
DX: E86.0 Dehydration (principal); G93.40 Encephalopathy, unspecified; F03.91 Unspecified dementia, unspecified severity, with behavioral disturbance; I10 Essential (primary) hypertension; R53.1 Weakness; E78.5 Hyperlipidemia, unspecified; F32.9 Major depressive disorder, single episode, unspecified; R29.6 Repeated falls; S12.000D Unspecified displaced fracture of first cervical vertebra, subsequent encounter for fracture with routine healing; S12.100D Unspecified displaced fracture of second cervical vertebra, subsequent encounter for fracture with routine healing; X58.XXXD Exposure to other specified factors, subsequent encounter
CPT/HCPCS: 36415; 70450; 71045; 80048; 80053; 80162; 81003; 82550; 82553; 83605; 83690; 83735; 83880; 84100; 84484; 85007; 85025; 87040; 87081; 93005; 99285